=== PATIENT | female | born 1945 | race Caucasian/White ===

== ENCOUNTER → 2018-09-18 | Outpatient (CLI) | payer OTHER, MEDICARE | LOC: CAT 08:52 | DX: R06.02 Shortness of breath (principal) ==

== ENCOUNTER → 2020-02-03 | Outpatient (CLI) | payer OTHER, MEDICARE | LOC: ULTRA 09:05 | PROVIDERS: ATTEND Family Medicine | DX: D41.4 Neoplasm of uncertain behavior of bladder (principal); R79.89 Other specified abnormal findings of blood chemistry ==